=== PATIENT | female | born 1990 | race Caucasian/White ===

== ENCOUNTER → 2017-04-03 | Outpatient (CLI) | payer BC | END | disposition home or self-care (01) | LOC: C.PAPS 08:00 | PROVIDERS: ATTEND Physician Assistant | DX: Z01.419 Encounter for gynecological examination (general) (routine) without abnormal findings (principal) ==

== ENCOUNTER → 2017-05-15 | Outpatient (CLI) | payer BC ==
[2017-05-19 10:06] LABS: CHLAMYDIA TRACH RNA*** NOT DETECTED (NOT DETECTED); GC (NEIS GONORRHOEAE)RNA** NOT DETECTED (NOT DETECTED)
== END | disposition home or self-care (01) ==
LOC: C.LABSPEC 18:00
PROVIDERS: ATTEND Physician Assistant
DX: Z30.430 Encounter for insertion of intrauterine contraceptive device (principal)

== ENCOUNTER → 2017-09-26 | Outpatient (CLI) | payer BC ==
--- NOTE | 2017-09-26 19:02 | DIAGNOSTIC IMAGING REPORT ---
BRAIN WITHOUT CONTRAST CLINICAL HISTORY: 27 years-old Female presenting with AUGUSTE CLASSICAL MIGRAINES for 3 years, now with blurred vision and dizziness, no trauma. TECHNIQUE: Multisequence, multiplanar MR imaging of the brain was performed without the use of intravenous contrast. IV contrast: None. COMPARISON: None. FINDINGS: Ventricles and sulci normal in size. Limited nonspecific T2/FLAIR hyperintense foci in periventricular white matter of the right posterior temporal region. Brain parenchyma otherwise normal in appearance with preserved quinteros-white differentiation. No mass effect or midline shift. No restricted diffusion to suggest acute ischemia. No hemorrhage. No extra-axial fluid collection. T2 skull base flow voids preserved. Layering fluid in the right maxillary sinus. Bone marrow signal intensity within the calvarium within normal limits. IMPRESSION: 1. No acute intracranial abnormality. 2. Limited abnormal periventricular white matter signal in the right posterior temporal region could relate to the history of chronic migraines. Electronically signed by: King Bravo M.D. 09/26/2017 7:01 PM Dictated Date/Time: 09/26/2017 6:56 PM
== END | disposition home or self-care (01) ==
LOC: C.MRI 17:35
PROVIDERS: ATTEND Family Medicine
DX: G43.109 Migraine with aura, not intractable, without status migrainosus (principal)